=== PATIENT | female | born 1980 | race Caucasian/White ===

== ENCOUNTER 2019-02-16 17:23 | Emergency (ER) | payer OTHER ==
[~2019-02-16] VITALS: Ht 157.5 cm; Wt 86.6 kg
[~2019-02-16 17:23] MED LIST: AMOXICILLIN875 MG PO; FLOMAX0.4 MG PO; KEFLEX500 MG PO; NAPROSYN500 MG PO; ONDANSETRON ODT8 MG PO; PERCOCET 5-3251 EACH PO; TRAMADOL HCL50 MG PO; ZOFRAN ODT4 MG PO
--- OUTSIDE RECORDS SUMMARY | 2019-02-16 17:26 | XMS ---
PreManage Notification: BRANDI SMART Security Credit Officer Events No recent Security Events currently on file CRITERIA MET - [facility] - 2 Visits in 30 Days CARE PROVIDERS There are no care providers on record at this time. Jacinto has no Care Guidelines for this patient. [facility] (12 MO.) [facility] NOTE: Visits indicate total known visits. ED/C VISIT TRACKING (12 MO.) [facility]16/2019 17[facility]24 [facility] COMPLAINT: - FLANK PAIN, URINE PROBLEM 02/06/2019 11:[address] [facility] [place] TYPE: Emergency COMPLAINT: - URINE PROBLEM,BACK PAIN DIAGNOSES: - Unspecified abdominal pain - Allergy status to narcotic agent status - Hydronephrosis with renal and ureteral calculous obstruction INPATIENT VISIT TRACKING (12 MO.) No inpatient visits to display in this time frame [email or web address]
[2019-02-16] MEDS ORDERED: ZOFRAN4 MG PO (19:58)
[2019-02-16] MEDS ORDERED: PERCOCET 5-3251 EACH PO (19:58)
== END 2019-02-16 21:01 | disposition home or self-care (01) ==
LOC: ED 17:23
DX: N13.2 Hydronephrosis with renal and ureteral calculous obstruction (principal); F17.200 Nicotine dependence, unspecified, uncomplicated; Z88.5 Allergy status to narcotic agent; Z79.899 Other long term (current) drug therapy
CPT/HCPCS: 74176; 80053; 81001; 84703; 85025; 96361; 96374; 96375; 96376; 99284-25; J1170; J1885; J2405; J7030

== ENCOUNTER 2024-03-09 03:14 | Observation (INO) | payer OTHER ==
[~2024-03-09] VITALS: Ht 157.5 cm; Wt 89.3 kg
[2024-03-09] VITALS (10 sets, daily range): BP systolic 101–160; BP diastolic 64–93
[~2024-03-09 03:14] MED LIST changes: +LEVAQUIN500 MG PO; +OXYCODONE HCL5 MG PO; +PYRIDIUM200 MG PO; +ZOFRAN4 MG PO
[2024-03-09 03:37] LABS: HEMATOCRIT 41.5 % (35.0-50.0); HEMOGLOBIN 13.6 g/dL (12.0-18.0); MCH 28.8 (27-36); MCHC 32.8 g/dl (30-36); MCV 87.6 fl (81-99); PLATELET COUNT 438 K/uL (140-440); RBC 4.74 M/ul (4.3-5.7); RDW 13.7 (10.5-15.0)
[2024-03-09] MEDS ORDERED: HYDROmorphone HCL 1 MG/ML SYR IV PRN ×3 (03:45→07:15)
[2024-03-09] MEDS ORDERED: ondansetron HCL 4 MG/2 ML VIAL IV ONE (03:45)
[2024-03-09] MEDS ORDERED: FAMOTIDINE 20 MG/ 2 ML VIAL IV ONE (03:45)
[2024-03-09] MEDS ORDERED: LACTATED RINGER'S 1,000 ML IV ONE (03:45)
[2024-03-09] MEDS ORDERED: KETOROLAC TROMETHAMINE 30 MG/ML VIAL IV ONE (03:45)
[2024-03-09 03:56] LABS: ALBUMIN 3.4 g/dL (3.4-5.0); ALBUMIN/GLOBULIN RATIO 0.74 (1.1-2.4); ANION GAP 12.7 (7-21); BILIRUBIN, TOTAL 0.2 ng/dL (0.2-1.0); BUN/CREATININE RATIO 15.95 (6.0-28.6); CALCIUM 9.6 mg/dL (8.5-10.1); CREATININE, SERUM 0.94 mg/dL (0.55-1.02); POTASSIUM 3.7 mmol/L (3.5-5.1)
[2024-03-09 04:03] LABS: BASOPHILS, MANUAL DIFF 1; EOSINOPHILS, MANUAL DIFF 1; LYMPHOCYTES, MANUAL DIFF 49; MONOCYTES, MANUAL DIFF 3; NEUTROPHILS, MANUAL DIFF 46
[2024-03-09] MEDS ORDERED: CEFTRIAXONE/SODIUM CHLORIDE 2 GM/100 ML PIGGYBACK IV ONE (05:15)
[2024-03-09] MEDS ORDERED: ondansetron HCL 4 MG/2 ML VIAL IV PRN ×3 (05:15→12:45)
[2024-03-09] MEDS ORDERED: metroNIDAZOLE/SODIUM CHLORIDE 500 MG/100 ML PIGGYBACK IV ONE (05:15)
[2024-03-09] MEDS ORDERED: LACTATED RINGER'S 1,000 ML IV SCH (05:15)
[2024-03-09 05:20] LABS: BILIRUBIN, URINE NEGATIVE (negative); BLOOD/HGB, URINE TRACE-I (Negative); KETONE, URINE NEGATIVE (Negative); LEUK ESTERASE, URINE SMALL (negative); NITRITE, URINE NEGATIVE (negative); PH, URINE 5.5 (5-7)
[2024-03-09 05:31] LABS: BACTERIA, URINE 1+ /hpf (negative); CASTS, URINE NONE SEEN \\lpf; CRYSTALS, URINE NONE SEEN (0-1+); EPITHELIAL CELLS, URINE SQUAMOUS 2+ /lpf (0-1+)
[2024-03-09 05:32] LABS: COLLECTION TYPE, URINE CLEAN CATCH; REFLEX CULTURE, URINE No (No)
--- NOTE | 2024-03-09 06:25 | NUR ---
PATIENT ARRIVED TO THE FLOOR VIA WHEELCHAIR. PATIENT TRANSFFERED FROM WHEELCHAIR TO BED WITH NO ASSISTANCE. PATIENT DENIES THE NEED TO VOID AT THIS TIME. PATIENT DENIES ANY PAIN OR NAUSEA. ADMISSION COMPLETED BY TELEHEALTH NURSE. PATIENTS VITALS TAKEN AND RECORDED. PATIENTS ASSESMENT COMPLETED. IV INFUSIGN PER ORDER. PATIENT UPDATE ON THE PLAN OF CARE AND ALL QUESTIONS ANSWERED. NO FURTHER NEEDS NOTED. CALL LIGHT IN REACH.
[2024-03-09] MEDS ORDERED: ACETAMINOPHEN 325 MG TAB PO PRN (07:15)
[2024-03-09] MEDS ORDERED: DEXTROSE 5% - LACTATED RINGERS 1,000 ML IV SCH (07:15)
[2024-03-09] MEDS ORDERED: ACETAMINOPHEN 500 MG TAB PO PRN (07:15)
[2024-03-09] MEDS ORDERED: PROCHLORPERAZINE EDISYLATE 10 MG/2 ML VIAL IV PRN (07:15)
[2024-03-09] MEDS ORDERED: OXYCODONE HCL 5 MG TAB PO PRN (07:15)
[2024-03-09] MEDS ORDERED: ACETAMINOPHEN 650 MG SUPP PR PRN (07:15)
[2024-03-09] MEDS ORDERED: IBUPROFEN 800 MG TAB PO PRN (07:15)
--- NOTE | 2024-03-09 07:55 | NUR ---
PT RESTING EYES CLOSED AT TIME OF SHIFT REPORT, LEFT UNDISTURBED. AWAKE NOW C/O NAUSEA COMPAZINE ADMINISTERED. PRE-OP ED PROVIDED. PT DENIES QUESTIONS OR CONCERNS. ORAL CARE ITEMS PROVIDED PT REMAINS NPO.
--- NOTE | 2024-03-09 08:52 | NUR ---
PATIENT IN BED AT THIS TIME. DIRECTOR OF COLLECTIONS WENT INTO PATIENTS ROOM FOR HOURLY ROUNDS. CALL LIGHT WITHIN REACH, NO FURTHER NEEDS AT THIS TIME.
[2024-03-09] MEDS ORDERED: CEFTRIAXONE/SODIUM CHLORIDE 2 GM/100 ML PIGGYBACK IV SCH (09:00)
[2024-03-09] MEDS ORDERED: FAMOTIDINE 20 MG/ 2 ML VIAL IV SCH (09:00)
[2024-03-09] MEDS ORDERED: PANTOPRAZOLE SODIUM 40 MG/10 ML VIAL IV SCH (09:00)
[2024-03-09] MEDS ORDERED: ENOXAPARIN SODIUM 40 MG/0.4 ML SYR SUB-Q SCH (09:00)
[2024-03-09] MEDS ORDERED: metroNIDAZOLE/SODIUM CHLORIDE 500 MG/100 ML PIGGYBACK IV SCH (09:00)
--- NOTE | 2024-03-09 09:13 | NUR ---
INTO SEE PATIENT. ALERT AND ORIENTED. SHE SAYS "I AM READY TO GET THIS GALLBLADDER OUT." PATIENT LIVES IN A HOUSE WITH 3 STEPS. DENIES ANY DIFFCULTY GETTING INTO OR OUT OF BED. PATIENT DOES NOT HAVE ANY DME. PATIENT DENIES ANY DIFFCULTY PAYING UTILITIES OR OBTAINING FOOD. PATIENT DRIVES HERSELF AND WILL HAVE HER PICK HER UP AT DISCHARGE. PERSONAL INFORMATION REVIEWED. DENIES ANY CASE MANAGEMENT NEEDS AT THIS TIME.
--- NOTE | 2024-03-09 09:19 | NUR ---
PT CONTINUES TO DOZE OFF AND ON AWAKENS EASILY. DENIES FURTHER NAUSEA OR NEEDS OF
--- NOTE | 2024-03-09 09:43 | NUR ---
UR CLINICAL REVIEW: [facility]- MEETS CRITERIA FOR LAP KARY [facility] OBS 03/09/24 @ 0706 ORDER MATCHES REG NO AUTH REQUIRED PER [facility] GUIDELINES PROCEDURE SCHEDULED FOR AFTERNOON. PROBABLE DISCHARGE POST OP IF NO COMPLICATIONS 03/10/24
--- NOTE | 2024-03-09 10:26 | NUR ---
PATIENT IN BED AT THIS TIME. MOTHERS HELPER CHARTED VITALS AND I&O'S. PATIENT STATED THAT SHE WANTED PAIN MEDICATIONS, RN BOBBY NOTIFIED. CALL LIGHT WITHIN REACH, NO FURTHER NEEDS AT THIS TIME.
--- NOTE | 2024-03-09 10:31 | NUR ---
PT C/O ABOMINAL/BACK PAIN RETURNING AGREES SHE WANTS PAIN MEDS. PRN ADMINISTERED PER ORDERS. PT IS PRESENT IN THE ROOM AT THIS TIME. TV ON PT RETURNS TO RESTING EYES CLOSED. SHE HAS BEEN UP TO BRUSH HER TEETH AND DO PERSONAL CARES
[2024-03-09] MEDS ORDERED: SODIUM CHLORIDE 0.9% 60 ML IV ONE (10:36)
[2024-03-09] MEDS ORDERED: LIDOCAINE 1% W/ EPI 1:200,000 30 ML SDV ONE (10:36)
[2024-03-09] MEDS ORDERED: iopamidoL 30 ML VIAL ONE (10:36)
--- NOTE | 2024-03-09 10:43 | NUR ---
MED REC COMPLETE
[2024-03-09] MEDS ORDERED: DEXAMETHASONE SOD PHOS 4 MG/ML VIAL ONE (11:06)
[2024-03-09] MEDS ORDERED: propofoL 200 MG/20 ML VIAL ONE (11:06)
[2024-03-09] MEDS ORDERED: MAGNESIUM SULFATE 1 GM/2 ML VIAL ONE (11:06)
[2024-03-09] MEDS ORDERED: ondansetron HCL 4 MG/2 ML VIAL ONE ×2 (11:06→12:46)
[2024-03-09] MEDS ORDERED: KETAMINE in NS 50 MG/5 ML SYR ONE (11:06)
[2024-03-09] MEDS ORDERED: LIDOCAINE HCL 2% 5 ML SDV ONE (11:06)
[2024-03-09] MEDS ORDERED: dexmedeTOMIDine HCl 200 MCG/2 ML VIAL ONE (11:06)
[2024-03-09] MEDS ORDERED: SODIUM CHLORIDE 0.9% 40 ML IV ONE (11:06)
[2024-03-09] MEDS ORDERED: ACETAMINOPHEN 1,000 MG/100 ML VIAL ONE (11:06)
[2024-03-09] MEDS ORDERED: ROCURONIUM BROMIDE 50 MG/5 ML SYR ONE (11:06)
[2024-03-09] MEDS ORDERED: fentaNYL citrate 100 MCG/2 ML VIAL ONE (11:06)
--- NOTE | 2024-03-09 11:10 | NUR ---
O/R CALLS TO STATE THEY WILL COME FOR PT IN 15 MINUTES. PT UP THE BATHROOM FOR SURGICAL [place] AND TO VOID. DENIES QUESTIONS OR CONCERNS
[2024-03-09] MEDS ORDERED: ePHEDrine sulfate 50 MG/ML AMP ONE (12:08)
[2024-03-09] MEDS ORDERED: NALOXONE HCL 0.4 MG SYR IV PRN (12:45)
[2024-03-09] MEDS ORDERED: IBLOOD GLUCOSE TEST STRIP 1 EA TEST VI PRN (12:45)
[2024-03-09] MEDS ORDERED: droPERidol 5 MG/2 ML VIAL IV PRN (12:45)
[2024-03-09] MEDS ORDERED: fentaNYL citrate 50 MCG/ML SDV IV PRN (12:45)
[2024-03-09] MEDS ORDERED: SUGAMMADEX SODIUM 200 MG/2 ML ML ONE (12:58)
[2024-03-09] MEDS ORDERED: KETOROLAC TROMETHAMINE 30 MG/ML VIAL ONE (13:12)
--- NOTE | 2024-03-09 13:32 | CONS ---
[facility] [address], [place] [address] Signed DATE OF CONSULTATION: 03/09/2024 CHIEF COMPLAINT: Right upper quadrant abdominal pain. HISTORY OF PRESENT ILLNESS: Tatyana is a 43-year-old obese female, who has had some intermittent pain in the right upper quadrant across her upper abdomen that radiates into her back. Yesterday, it was quite severe, so she came to emergency room for evaluation. Her vital signs were fine. She was tender in upper abdomen with an elevated white blood cell count. Liver function tests were fine. CT scan was done and she has a distended mildly thickened gallbladder wall without any obvious gallstones. Common bile duct and liver unremarkable. We do not have ultrasound techs available at night. She was admitted overnight to my service as a local general surgeon. She received Rocephin, Flagyl and Toradol. This morning, she is feeling better but still has some pain in the right upper quadrant. PAST MEDICAL HISTORY: Psoriasis, nephrolithiasis, obesity, and a fractured bone. PAST SURGICAL HISTORY: None. SOCIAL HISTORY: She does smoke, but does not drink. She has gone to see her primary care provider once, Yvonne Boyd. She told me her mom is a registered nurse. She prefers the [facility] pharmacy. Her sister is Christy James at [phone]. FAMILY HISTORY: None. REVIEW OF SYSTEMS: She had 10 systems reviewed and she told me about the fractured bone, but no surgery. ALLERGIES: Vicodin caused her GI upset, but she told me Percocet was fine. MEDICATIONS: None. PHYSICAL EXAMINATION: VITAL SIGNS: Her blood pressure is 123/67, heart rate 69, respiratory rate 16, her temperature is 97.8. She is 100% on room air. She is 5 feet 2 inches tall at 89 kg with a body mass index of 36. Electronically Signed By: VICTOR HUGO WAY MD 03/09/24 1332 PATIENT NAME: TATYANA SMART CONSULTATION DATE OF : 82 REPORT #: [id number] PHYSICIAN: VICTOR HUGO WAY MD PCP: YVONNE BOYD PA-C REPORT IS CONFIDENTIAL AND NOT TO BE RELEASED WITHOUT AUTHORIZATION [facility] [address] [place] [address] Signed GENERAL: Tatyana is a 43-year-old female, lying supine in her hospital bed with our nurse at the bedside. She is in no acute distress. She is not jaundiced. LUNGS: Clear to auscultation bilaterally. HEART: Regular rate and rhythm without murmurs. ABDOMEN: Obese, soft, but tender in the right upper quadrant just minutes after receiving some pain medication. LABORATORY DATA: White blood cell count 14, hemoglobin 13, neutrophils 46. Electrolytes unremarkable. UA negative. Total bilirubin 0.2, AST 8, ALT 20, alkaline phosphatase 93, albumin 3.4, lipase 61. Beta-hCG negative. Creatinine 0.9. RADIOGRAPHIC STUDIES: CT scan of the abdomen and pelvis were reviewed, both the report and the images. She does have a mildly thickened gallbladder wall and mildly distended gallbladder. No obvious gallstones. The liver and common bile duct are unremarkable. ASSESSMENT AND PLAN: Tatyana is a 43-year-old obese female, who presents with acute cholecystitis. She has been admitted and hydrated, given antibiotics and pain control overnight. I brought with me a brochure on the gallbladder. We reviewed the book page by page. She understands the location and function of the gallbladder. We discussed laparoscopic versus open cholecystectomy. She understands expected intraop and postop course. There is risk including, but not limited to bleeding, infection, scarring, change in contour of the skin, damage to bowel, damage to main bile duct, incisional hernias and other unforeseen comorbidities. She understands there is risk including, but not limited to bleeding, infection, scarring, change in contour of the skin, damage to bowel, damage to main bile duct, incisional hernias and other unforeseen comorbidities. She has expressed understanding and would like to proceed once we will have a crew available to me later today. Victor Hugo Way MD ALB/MODL /[id number] cc: Patient's Chart Electronically Signed By: VICTOR HUGO WAY MD 03/09/24 1332 PATIENT NAME: TATYANA SMART CONSULTATION DATE OF : 82 REPORT #: [id number] PHYSICIAN: VICTOR HUGO WAY MD PCP: YVONNE BOYD PA-C REPORT IS CONFIDENTIAL AND NOT TO BE RELEASED WITHOUT AUTHORIZATION [address] [address] Signed TIN Valerio MD Copies: YVONNE BOYD PA-C, ANDREW L MD ~ Electronically Signed By: VICTOR HUGO WAY MD 03/09/24 1332 PATIENT NAME: TATYANA SMART [facility]STA CONSULTATION DATE OF : [birth year] REPORT #: [id number] PHYSICIAN: VICTOR HUGO WAY MD PCP: YVONNE BOYD PA-C REPORT IS CONFIDENTIAL AND NOT TO BE RELEASED WITHOUT AUTHORIZATION
--- NOTE | 2024-03-09 13:39 | NUR ---
03/09/24 1339 Anma Knapp 1320-PT ARRIVES TP PACU VIA STRETCHER, PT REACTIVE TO NOXIOUS STIMULI BUT REQUIRES MANUAL JAW THRUST, VSS ON 6L VIA MASK. 1325-PT NO LONGER REQUIRES MANUAL JAW THRUST, VSS ON 6L VIA MASK, RR EVEN AND UNLABORED, PT AWAKENS TO VOICE AND FOLLOWS COMMANDS TO DEEP BREATHE AND COUGH, BUT UNABLE TO ANSWER QUESTIONS AT THIS TIME. 1335- AT BEDSIDE TO DISCUSS PROCEDURE RESULTS AND PLAN OF CARE, PT STILL TOO DROWSY TO GIVE UPDATE TO FAMILY.
[2024-03-09] MEDS ORDERED: SEVOFLURANE 250 ML BTL INH ONE (13:58)
--- NOTE | 2024-03-09 14:24 | NUR ---
PATIENT RETURNED FROM SURGERY AT 1415. PATIENT IS ON 2L OF O2 FOR 100% BUT DOES DSAT BELOW 90% WHEN ASLEEP. SCDS ARE ON, ICE WATER PROVIDED. X5 ABD SCOPE SITES INTACT WITH GUAZE AND TAPE. PATIENT DENIES PAIN OR NAUSEA. SPOUSE IS IN ROOM WITH PATIENT.
[2024-03-09] MEDS ORDERED: OXYCODONE HCL10 MG PO (14:41)
[2024-03-09] MEDS ORDERED: TYLENOL325 MG PO (14:42)
--- NOTE | 2024-03-09 14:43 | NUR ---
PT SBA TO TOILET ABLE TO VOID 300 WITHOUT DIFFICULTY. RETURNS TO REST IN BED SATS 97% ON RA. 02 REPLACED BECAUSE PT SATS DIP WITH SHE SLEEPS ON AT 2LPM. PT SNORING SOFTLY ALMOST IMMEDIATELY. REMAINS IN THE ROOM
--- NOTE | 2024-03-09 14:50 | NUR ---
PT NOT AVAILABLE FOR VISIT. PROVIDED PRAYER.
--- NOTE | 2024-03-09 15:13 | NUR ---
PT SNORING SOFTLY SATS 98% AWAKENS TO VOICE. VITALS TAKEN PT RETURNS TO SNORING SOFTLY
--- NOTE | 2024-03-09 16:12 | NUR ---
PT AWAKENED FOR VITALS REQUESTS SOMETHING FOR POST-OP PAIN DRINKS H20 AND AGREES SHE WILL BE READY FOR DINNER. DENIES OTHER NEEDS AT THIS TIME
--- NOTE | 2024-03-09 17:17 | NUR ---
PT C/O EPIGASTRIC PAIN ADDITIONAL 5MG OXY ADMINISTERED. DISCUSSED THE GAS USED DURING SURGERY AND THE NEED TO AMBULATE SHE VERBALIZES UNDERSTANDING. AGREES SHE IS READY FOR EVENING MEAL. RELATES CONCERNS R/T DC TONIGHT STATING PHARMACY IS LIKELY CLOSED SO NO PAIN MED. THIS CREDIT PRODUCT ANALYST HAD ENCOURAGED HER EARLIER TO SEND THE SCRIPT TO PHARM WITH PHARMACY HAD DELIVERED THIS SCRIPT AROUND 1500 OR SO. PT ENCOURAGED SHE CAN USE IBUPROFEN AND TYLENOL WELL MEDICATE PRIOR TO DC. STATES SHE WILL SEE HOW IT GOES AFTER HER MEAL. CAMACHO PROVIDED PT ENCOURAGED TO AMBULATE
--- NOTE | 2024-03-09 18:35 | NUR ---
PT EATS A FAIR PORTION OF EVENING MEAL DECLINES TO WALK RETURNS TO SNORING SOFTLY.
--- NOTE | 2024-03-09 18:42 | NUR ---
PATIENT SITTING UP IN BED AT THIS TIME. VITALS AND I&O'S DONE AND CHARTED. CALL LIGHT IN REACH. NO FURTHER NEEDS AT THIS TIME.
--- NOTE | 2024-03-09 21:20 | NUR ---
ASSESSMENT AND VITAL SIGNS DONE. pt C/O 07/21 PAIN. PRN PAIN MEDS ADMINISTERED. CPOX ON. SCD'S ON. LAP SITES CDI. pt DENIES ANY OTHER NEEDS AT THIS TIME. CALL LIGHT WITHIN REACH. PRN NAUSEA MEDS ADMINISTERED.
--- NOTE | 2024-03-09 23:50 | NUR ---
pt RESTING IN THE BED. pt DENIES ANY OTHER NEEDS AT THIS TIME. CALL LIGHT WITHIN REACH.
[2024-03-10 00:40] VITALS: BP 160/80
--- NOTE | 2024-03-10 01:38 | NUR ---
pt RESTING IN THE BED WITH EYES CLOSED. RR EVEN AND UNLABORED. CALL LIGHT WITHIN REACH.
[2024-03-10 02:29] VITALS: BP 131/77
--- NOTE | 2024-03-10 02:48 | NUR ---
VS AND ASSESSMENT DONE. pt DENIES ANY OTHER NEEDS AT THIS TIME. CALL LIGHT WITHIN REACH.
--- NOTE | 2024-03-10 04:16 | NUR ---
pt RESTING IN THE BED. pt DENIES ANY NEEDS AT THIS TIME. CALL LIGHT WITHIN REACH.
[2024-03-10 05:02] VITALS: BP 117/66
--- NOTE | 2024-03-10 05:14 | NUR ---
VITAL SIGNS DONE. pt C/O 04/20 PAIN. PRN PAIN MEDS ADMINISTERED. pt DENIES ANY OTHER NEEDS AT THIS TIME. CALL LIGHT WITHIN REACH. WATER REFRESHED.
--- NOTE | 2024-03-10 05:42 | OR ---
[facility] [address] [place], [place] [address] Signed DATE OF OPERATION: 03/09/2024 SURGEON: Victor Hugo Way MD PREOPERATIVE DIAGNOSIS: Acute cholecystitis. POSTOPERATIVE DIAGNOSIS: Acute cholecystitis with cholelithiasis. PROCEDURE: Laparoscopic cholecystectomy with intraoperative cholangiogram. ESTIMATED BLOOD LOSS: None. FINDINGS: Tatyana indeed had multiple 10 to 12 mm yellow cholesterol stones in her gallbladder. She also had cholesterolosis. She did have some mild edema to the gallbladder wall. The intraoperative cholangiogram was unremarkable. INDICATIONS: Tatyana is a 43-year-old obese female, who for about a half a day or so had significant right upper quadrant abdominal pain. She came to the emergency room for evaluation. Her vital signs were unremarkable. She was tender in the right upper quadrant. White count was elevated at 14,000. Liver function tests were unremarkable. Beta-hCG was negative. CT scan of the abdomen and pelvis revealed her distended gallbladder and some mild thickening to the gallbladder wall. Common bile duct and liver were unremarkable. No radiopaque stones were seen. We do not have an reliability technicians at night. Therefore, I have been asked to admit her as a general surgeon on-call. She received IV fluids, pain control, and Rocephin and Flagyl. I met with Tatyana this morning. I brought a brochure with me on the gallbladder. We went over it page by page. She understands the location and function of the gallbladder. We discussed laparoscopic versus open cholecystectomy. There is risk including, but not limited to bleeding, infection, scarring, change in contour of the skin, damage to bowel, damage to the main bile duct, incisional hernias and other unforeseen comorbidities. She also understands the expected intraop and postop course. She had expressed understanding and wished to proceed. DESCRIPTION OF PROCEDURE: Electronically Signed By: VICTOR HUGO WAY MD 03/10/24 0542 PATIENT NAME: TATYANA SMART OPERATIVE REPORT DATE OF : 82 REPORT #: [id number] PHYSICIAN: VICTOR HUGO WAY MD PCP: YVONNE BOYD PA-C REPORT IS CONFIDENTIAL AND NOT TO BE RELEASED WITHOUT AUTHORIZATION [facility] [address] [place], [place] [address] Signed I met with Tatyana once again in our preop area. After this, she was taken into the operating room and placed in the supine position under general endotracheal tube anesthesia. She was already on preoperative antibiotics along with subcutaneous Lovenox. SCDs were utilized. She was prepped and draped in the usual sterile fashion. All trocars were placed in their usual positions under direct visualization of the camera without difficulty. Her gallbladder was grasped and elevated in the right upper quadrant. We took pictures throughout for photodocumentation. We could see immediately that the gallbladder was indeed a little distended and a little edematous. We dissected out the triangle of Calot with our [place] dissector. The intraoperative cholangiocatheter was inserted into the cystic duct. The intraoperative cholangiogram was found to be unremarkable. We secured the cystic duct stump with two sequential clips completely across the cystic duct. Her cystic artery had a little bit of came up to the gallbladder. We therefore placed a couple of clips proximally and one distally. We divided that sharply with the scissors. The cystic artery and lymph node of Calot and then bluntly swept downwards. The gallbladder was then slowly and surely taken off the gallbladder fossa with the help of the cautery. It was just a little bit edematous. After this, the right upper quadrant was irrigated and suctioned out until clear. We closed the subxiphoid trocar site with interrupted 0 Vicryl suture using our laparoscopic suturing device. We then let all the gas to escape and all the trocars were removed along with the gallbladder. The gallbladder was opened on the back table by our circulating nurse for photodocumentation. Again, multiple 1 cm yellow cholesterol stones with cholesterolosis. After this we closed the fascia of the supraumbilical trocar site with interrupted [id number] and 0 Vicryl sutures. Local anesthetic was injected into all the trocar sites. Each trocar site was irrigated and suctioned out until clear. The skin and dermis of each trocar site were closed with interrupted 3-0 subcuticular Monocryl sutures. Dry gauze and tape was then applied to all incisions. After this, Tatyana was awakened from her anesthesia, extubated in the OR, and taken to the recovery room in stable condition. MD DARLIN Perdomo/JETHROL /[id number] cc: Yvonne Boyd PA-C Electronically Signed By: VICTOR HUGO WAY MD 03/10/24 0542 PATIENT NAME: TATYANA SMART [facility] OPERATIVE REPORT DATE OF : 82 REPORT #: [id number] PHYSICIAN: VICTOR HUGO WAY MD PCP: YVONNE BOYD PA-C REPORT IS CONFIDENTIAL AND NOT TO BE RELEASED WITHOUT AUTHORIZATION [address] [place], [place] [address] MD Copies: YVONNE BOYD PA-C, ANDREW L MD ~ Electronically Signed By: VICTOR HUGO WAY MD 03/10/24 0542 PATIENT NAME: TATYANA SMART OPERATIVE REPORT DATE OF : 82 REPORT #: [id number] PHYSICIAN: VICTOR HUGO WAY MD PCP: YVONNE BOYD PA-C REPORT IS CONFIDENTIAL AND NOT TO BE RELEASED WITHOUT AUTHORIZATION
--- NOTE | 2024-03-10 07:37 | NUR ---
PT AWAKE AND INTERACTIVE AT TIME OF SHIFT REPORT. AGREES SHE SLEPT WELL AND IS READY TO GO HOME TODAY. REQUESTED PAIN MED ANTICIPATING GETTING UP TO GET DRESSED AND LOAD IN VEHICLE.
--- NOTE | 2024-03-10 08:45 | NUR ---
PATIENT IN BED AT THIS TIME. BUSINESS LIAISON MANAGER WENT INTO ROOM FOR HOURLY ROUNDS. CALL LIGHT WITHIN REACH, NO FURTHER NEEDS AT THIS TIME.
--- NOTE | 2024-03-10 08:53 | NUR ---
PT TOLERATES BREAKFAST WELL. SHE SHOWERS AND HAS ARRIVED FOR DC. EDUCATION PROVIDED R/T SURGICAL AND IV SITE AND EFFECTS OF NARCOTICS ON BOWELS ETC. PT VERBALIZES UNDERSTANDING DENIES FURTHER QUESTIONS.
[2024-03-10 08:57] VITALS: BP 128/76
[2024-03-10] MEDS ORDERED: metroNIDAZOLE/SODIUM CHLORIDE 500 MG/100 ML PIGGYBACK IV SCH (09:00)
[2024-03-10] MEDS ORDERED: PANTOPRAZOLE SODIUM 40 MG/10 ML VIAL IV SCH (09:00)
[2024-03-10] MEDS ORDERED: CEFTRIAXONE/SODIUM CHLORIDE 2 GM/100 ML PIGGYBACK IV SCH (09:00)
--- NOTE | 2024-03-14 17:18 | PATH ---
[facility] [address] [facility] [place], [place] [address] Signed SPECIMEN(S): A GALLBLADDER AND STONES SPECIMEN SOURCE: A. GALLBLADDER AND STONES CLINICAL HISTORY: Acute cholecystitis FINAL PATHOLOGIC DIAGNOSIS: Gallbladder, cholecystectomy: - Acute and chronic cholecystitis with cholelithiasis. - Focal cholesterolosis. - No malignancy identified [facility] MICROSCOPIC EXAMINATION: Histologic sections of all submitted blocks are examined by light microscopy. These findings, together with the gross examination, support the pathologic diagnosis. GROSS DESCRIPTION: The specimen, labeled and designated "Janice Smart, gallbladder and stones per requisition," is received in formalin and consists of Specimen: Surgically disrupted gallbladder. Dimensions: 8 x 3.2 x 2 cm. Serosa: Smooth. Cystic Duct: Unobstructed. Calculi: Presentyellow and multifaceted. Mucosa: [place]-green and velvety. Wall thickness: 0.2 cm. Lymph node: No pericystic lymph nodes are grossly identified. Additional: None. Yard Foreman sections are submitted in (A1). AA (under the direct supervision of a pathologist) The Gross Description was prepared using a voice recognition system. The report was reviewed for accuracy; however, sound-alike word errors, addition and/or deletions may occur. If there is any question about this report, please contact Client Services. ADDITIONAL NOTES: Immunohistochemical and/or in situ hybridization studies if performed in this PATIENT NAME: BRANDI SMART [facility] DATE OF : 82 REPORT #: [id number] PHYSICIAN: GANESH MONTES PCP: SINDI RAYMOND PA-C REPORT IS CONFIDENTIAL AND NOT TO BE RELEASED WITHOUT AUTHORIZATION [address] [address] Signed case included appropriate positive controls that reacted as expected. This test was developed and its performance characteristics determined by [email or web address]. It has not been cleared or approved by the U.S. Food and Drug Administration. The FDA has determined that such clearance or approval is not necessary. This test is used for clinical purposes. It should not be regarded as investigational or for research. [email or web address] is certified under the Clinical Laboratory Improvement Amendments of 1988 (CLIA) as qualified to perform high complexity clinical laboratory testing. PERFORMING LABORATORY: Technical component was performed by [email or web address], [address] [place] [id number] (CLIA# [id number]). Professional interpretation was performed by [facility] - [facility], [address] [place] [id number] (CLIA#: [id number]). Diagnostician: Braxton Josue MD Pathologist Electronically Signed 03/14/2024 Copies: ~ PATIENT NAME: BRANDI SMART [facility] DATE OF : [birth year] REPORT #: [id number] PHYSICIAN: GANESH PATHOLOGY PCP: SINDI RAYMOND PA-C REPORT IS CONFIDENTIAL AND NOT TO BE RELEASED WITHOUT AUTHORIZATION
== END 2024-03-10 08:59 | disposition home or self-care (01) ==
LOC: ED 03:14 → MS 03:15
PROVIDERS: Internal Medicine; ADMIT Colon & Rectal Surgery; ATTEND Colon & Rectal Surgery
PROC: 0FT44ZZ Resection of Gallbladder, Percutaneous Endoscopic Approach (ICD-10-PCS; principal; 2024-03-09 12:00)
DX: K80.12 Calculus of gallbladder with acute and chronic cholecystitis without obstruction (principal); E66.9 Obesity, unspecified; L40.9 Psoriasis, unspecified; Z88.8 Allergy status to other drugs, medicaments and biological substances; F17.200 Nicotine dependence, unspecified, uncomplicated
CPT/HCPCS: 00790; 36415; 74177; 74300; 80053; 81001; 83690; 84703; 85025; 96372; 96375; 96376; 99285-25; A9270; G0378; J0131; J0696; J0780; J1100; J1171; J1650; J1885; J2003; J2405; J2704; J3010; J3475; J3490; J7121; Q9967

== ENCOUNTER 2024-03-10 22:09 | Emergency (ER) | payer OTHER ==
[~2024-03-10] VITALS: Ht 157.5 cm; Wt 88.9 kg
[~2024-03-10 22:09] MED LIST changes: +OXYCODONE HCL10 MG PO; +TYLENOL325 MG PO
--- OUTSIDE RECORDS SUMMARY | 2024-03-10 22:16 | XMS ---
PreManage Notification: BRANDI SMART Security Varnish Finisher Events No recent Security Events currently on file CRITERIA MET - [facility] - 2 Visits in 30 Days CARE PROVIDERS [facility]: Multi-Specialty Current FAMILY PHONE: Unknown SINDI RAYMOND Physician Current PHONE: Unknown Jacinto has no Care Guidelines for this patient. Chayo VISIT COUNT (12 MO.) [address] [place] [address] TOTAL 2 NOTE: Visits indicate total known visits. ED/UCC VISIT TRACKING (12 MO.) 03/10/2024 22:09 [facility] TYPE: Emergency COMPLAINT: - POST OP PROBLEM 03/09/2024 03:14 [facility] TYPE: Emergency COMPLAINT: - ABD PAIN INPATIENT VISIT TRACKING (12 MO.) 03/09/2024 03:15 [facility] TYPE: Observation COMPLAINT: - ACUTE CHOLECYSTITIS [email or web address]
[2024-03-10] MEDS ORDERED: ondansetron HCL 4 MG/2 ML VIAL IV ONE (22:30)
[2024-03-10] MEDS ORDERED: FAMOTIDINE 20 MG/ 2 ML VIAL IV ONE (22:30)
[2024-03-10] MEDS ORDERED: KETOROLAC TROMETHAMINE 30 MG/ML VIAL IV ONE (22:30)
[2024-03-10] MEDS ORDERED: HYDROmorphone HCL 1 MG/ML SYR IV PRN (22:30)
[2024-03-10] MEDS ORDERED: LACTATED RINGER'S 1,000 ML IV ONE (22:30)
[2024-03-10 22:32] LABS: HEMATOCRIT 39.9 % (35.0-50.0); HEMOGLOBIN 13.1 g/dL (12.0-18.0); MCH 28.6 (27-36); MCHC 32.9 g/dl (30-36); PLATELET COUNT 391 K/uL (140-440); RBC 4.59 M/ul (4.3-5.7); RDW 13.9 (10.5-15.0)
[2024-03-10 22:44] LABS: EOSINOPHILS, MANUAL DIFF 2; LYMPHOCYTES, MANUAL DIFF 42; MONOCYTES, MANUAL DIFF 3; NEUTROPHILS, MANUAL DIFF 53
[2024-03-10 22:47] LABS: ALBUMIN 3.4 g/dL (3.4-5.0); ALBUMIN/GLOBULIN RATIO 0.87 (1.1-2.4); ANION GAP 12.8 (7-21); BILIRUBIN, TOTAL 0.6 ng/dL (0.2-1.0); CALCIUM 8.8 mg/dL (8.5-10.1); CREATININE, SERUM 0.9 mg/dL (0.55-1.02); POTASSIUM 3.8 mmol/L (3.5-5.1); PROTEIN, TOTAL 7.3 g/dL (6.4-8.2)
[2024-03-10 23:35] LABS: BILIRUBIN, URINE NEGATIVE (negative); BLOOD/HGB, URINE TRACE-I (Negative); KETONE, URINE NEGATIVE (Negative); LEUK ESTERASE, URINE TRACE (negative); NITRITE, URINE NEGATIVE (negative)
[2024-03-10 23:40] LABS: EPITHELIAL CELLS, URINE SQUAMOUS 4+ /lpf (0-1+)
[2024-03-10 23:41] LABS: BACTERIA, URINE RARE /hpf (negative); CASTS, URINE NONE SEEN \\lpf; COLLECTION TYPE, URINE CLEAN CATCH; CRYSTALS, URINE NONE SEEN (0-1+); REFLEX CULTURE, URINE No (No)
[2024-03-10] MEDS ORDERED: OXYCODONE HCL 5 MG TAB PO ONE (23:45)
[2024-03-11] MEDS ORDERED: dilTIAZem HCL 25 MG/5 ML VIAL IV ONE (00:30)
[2024-03-11] MEDS ORDERED: Methylnaltrexone Bromide 12 MG/0.6 ML VIAL SUB-Q ONE (00:45)
[2024-03-11] MEDS ORDERED: ondansetron HCL 4 MG/2 ML VIAL IV ONE (02:30)
[2024-03-11] MEDS ORDERED: metroNIDAZOLE/SODIUM CHLORIDE 500 MG/100 ML PIGGYBACK IV ONE (03:30)
[2024-03-11] MEDS ORDERED: CEFTRIAXONE/SODIUM CHLORIDE 2 GM/100 ML PIGGYBACK IV ONE (03:30)
[2024-03-11] MEDS ORDERED: LACTATED RINGER'S 1,000 ML IV ONE (04:00)
[2024-03-11] MEDS ORDERED: LACTATED RINGER'S 1,000 ML IV SCH (04:00)
[2024-03-11 07:00] VITALS: BP 132/92
== END 2024-03-11 07:00 | disposition short-term general hospital (02) ==
LOC: ED 22:09
PROVIDERS: Internal Medicine
DX: K91.89 Other postprocedural complications and disorders of digestive system (principal); K83.8 Other specified diseases of biliary tract; F17.200 Nicotine dependence, unspecified, uncomplicated; Z90.49 Acquired absence of other specified parts of digestive tract; Z88.5 Allergy status to narcotic agent; Z79.891 Long term (current) use of opiate analgesic
CPT/HCPCS: 36415; 74177; 80053; 81001; 83690; 85025; 87088; 96375; 96376; 99285-25; A9270; J0696; J1171; J1885; J2405; J7121; Q9967